=== PATIENT | female | born 1995 | race Asian ===

== ENCOUNTER 2017-03-03 11:30 | Outpatient (CLI) | payer OTHER | END 2017-03-03 11:40 | disposition short-term general hospital (02) | LOC: AMB 11:30 | DX: R10.84 Generalized abdominal pain (principal); R11.0 Nausea | CPT/HCPCS: A0425; A0429 ==

== ENCOUNTER 2017-03-03 11:45 | Emergency (ER) | payer OTHER ==
[~2017-03-03] VITALS: Ht 165.1 cm; Wt 106.6 kg
[2017-03-03 13:29] LABS: PLATELET COUNT 275 K/uL (152-353)
[2017-03-03 13:35] LABS: SODIUM 135 mmol/L (136-145)
== END 2017-03-03 14:30 | disposition home or self-care (01) ==
LOC: ED 11:45
PROVIDERS: Specialist
DX: R10.84 Generalized abdominal pain (principal); O26.899 Other specified pregnancy related conditions, unspecified trimester; O21.0 Mild hyperemesis gravidarum
CPT/HCPCS: 36415; 80048; 81000; 81025; 85027; 99283